=== PATIENT | female | born 1950 | race Caucasian/White ===

== ENCOUNTER → 2017-02-10 | Outpatient (CLI) | payer OTHER ==
[~2017-02-10] MED LIST: ASPIR 8181 MG PO; ASPIRIN CHEWABL81 MG PO; AUGMENTIN TAB875 MG PO; BRILINTA 90 MG90 MG PO; CALCIUM + D3 E1 EACH PO; CIPRO HC10 ML OT; LEVOTHYROXINE50 MCG PO; LIPITOR TAB 2020 MG PO; METOPROLOL SUCC25 MG PO; NITROSTAT0.4 MG SL; NORVASC 5 MG TAB5 MG PO; OMEPRAZOLE20 M1 PO; PROBIOTIC1 EAC1 PO; SUPER B COMPLE1 EAC1 PO; VITAMIN B12 PO
[2017-02-10 10:39] LABS: RED BLOOD COUNT 4.56 M/UL (4.00-5.10); WHITE BLOOD COUNT 5.9 K/UL (4.5-11.0)
[2017-02-10 10:58] LABS: BUN/CREATININE RATIO 20 (0-10)
== END ==
LOC: LAB 10:03
PROVIDERS: Dermatology
DX: L40.0 Psoriasis vulgaris (principal); L40.1 Generalized pustular psoriasis
CPT/HCPCS: 36415; 80053; 82248; 85027

== ENCOUNTER → 2017-06-24 | Outpatient (CLI) | payer OTHER ==
[2017-06-24 11:10] LABS: BUN/CREATININE RATIO 27 (0-10)
== END ==
LOC: LAB 08:38
PROVIDERS: Dermatology
DX: J43.9 Emphysema, unspecified (principal); L40.0 Psoriasis vulgaris; L40.1 Generalized pustular psoriasis
CPT/HCPCS: 36415; 71020; 80053; 80074; 82248; 87390

== ENCOUNTER → 2021-05-11 | Outpatient (CLI) | payer MEDICARE ==
[2021-05-11 16:01] LABS: HEMOGLOBIN 13.5 gm/dl (12.3-15.3); RED BLOOD COUNT 4.33 M/UL (4.00-5.10); WHITE BLOOD COUNT 5.3 K/UL (4.5-11.0)
[2021-05-14 19:12] LABS: QUANTIFERON MITOGEN VALUE >10.00 IU/mL (.); QUANTIFERON TB1 AG VALUE 0.08 IU/mL (.); QUANTIFERON-TB GOLD PLUS Negative (Negative)
== END ==
LOC: RAD 13:13
PROVIDERS: Dermatology
DX: L40.0 Psoriasis vulgaris (principal); L40.1 Generalized pustular psoriasis; J43.9 Emphysema, unspecified
CPT/HCPCS: 36415; 71046; 80053; 80076; 85027

== ENCOUNTER → 2021-08-12 | Outpatient (CLI) | payer MEDICARE | LOC: HEART 5 07:33 | DX: I25.10 Atherosclerotic heart disease of native coronary artery without angina pectoris (principal); I10 Essential (primary) hypertension; R00.1 Bradycardia, unspecified; I08.1 Rheumatic disorders of both mitral and tricuspid valves | CPT/HCPCS: 78452; 93306; A9502; J2785 ==

== ENCOUNTER → 2021-08-30 | Outpatient (CLI) | payer MEDICARE ==
[2021-08-30 13:22] LABS: HEMOGLOBIN 13.1 gm/dl (12.3-15.3); RED BLOOD COUNT 4.21 M/UL (4.00-5.10); WHITE BLOOD COUNT 6.7 K/UL (4.5-11.0)
[2021-08-30 13:56] LABS: BUN/CREATININE RATIO 18 (0-10)
== END ==
LOC: LAB 12:55
PROVIDERS: Internal Medicine Interventional Cardiology
DX: R00.1 Bradycardia, unspecified (principal); J30.9 Allergic rhinitis, unspecified; I25.10 Atherosclerotic heart disease of native coronary artery without angina pectoris; R07.9 Chest pain, unspecified; R53.83 Other fatigue; I10 Essential (primary) hypertension; G47.00 Insomnia, unspecified; G47.33 Obstructive sleep apnea (adult) (pediatric); R06.02 Shortness of breath; Z95.5 Presence of coronary angioplasty implant and graft
CPT/HCPCS: 36415; 80048; 85025; 85610; 85730; 93005

== ENCOUNTER 2021-09-07 06:42 | Outpatient (CLI) | payer MEDICARE ==
[~2021-09-07] VITALS: Ht 165.1 cm; Wt 73.5 kg
[2021-09-07] MEDS ORDERED: PRAVASTATIN SOD80 MG PO (07:51)
[2021-09-07] MEDS ORDERED: PROBIOTIC1 EAC1 PO (07:52)
[2021-09-07] MEDS ORDERED: MULTI-VITAMIN1 EACH PO (07:54)
[2021-09-07] MEDS ORDERED: MELOXICAM7.5 MG PO (07:59)
[2021-09-07] MEDS ORDERED: MONTELUKAST SOD10 MG PO (08:01)
[2021-09-07] MEDS ORDERED: COSENTYX P150 MG/11 SQ (08:01)
[2021-09-07] MEDS ORDERED: OMEGA-3 ACID ETH1 GM PO (08:02)
[2021-09-07] MEDS ORDERED: KENALOG 0.5% CR15 GM EXT (08:03)
[2021-09-07 19:20] LABS: HEMOGLOBIN 12.6 gm/dl (12.3-15.3); RED BLOOD COUNT 4.13 M/UL (4.00-5.10); WHITE BLOOD COUNT 8.6 K/UL (4.5-11.0)
[2021-09-07 19:49] LABS: BUN/CREATININE RATIO 17 (0-10)
[2021-09-08 04:08] LABS: HEMOGLOBIN 13.1 gm/dl (12.3-15.3); RED BLOOD COUNT 4.26 M/UL (4.00-5.10); WHITE BLOOD COUNT 7.5 K/UL (4.5-11.0)
[2021-09-08 04:55] LABS: BUN/CREATININE RATIO 18 (0-10)
[2021-09-08] MEDS ORDERED: ISOSORBIDE MONO30 MG PO (13:16)
[2021-09-08] MEDS ORDERED: BRILINTA90 MG PO (13:18)
== END 2021-09-08 14:17 | disposition home or self-care (01) ==
LOC: CATH 06:42 → PROG CARE 10:21 → CATH 09-08 14:17
PROVIDERS: Internal Medicine Interventional Cardiology
DX: I25.118 Atherosclerotic heart disease of native coronary artery with other forms of angina pectoris (principal); I10 Essential (primary) hypertension; I73.9 Peripheral vascular disease, unspecified; K21.9 Gastro-esophageal reflux disease without esophagitis; E78.00 Pure hypercholesterolemia, unspecified; Z23 Encounter for immunization; Z95.5 Presence of coronary angioplasty implant and graft; Z88.8 Allergy status to other drugs, medicaments and biological substances; Z79.82 Long term (current) use of aspirin; Z79.899 Other long term (current) drug therapy
CPT/HCPCS: 36415; 80048; 82550; 82553; 84484; 85027; 85347; 93005; 97161; 99152; 99153; C1725; C1769; C1874; C1887; C1894; C9600; J1170; J1644; J2250; J2405; J3010; J3246; J7030; Q9967

== ENCOUNTER → 2021-09-22 | Outpatient (CLI) | payer MEDICARE ==
[~2021-09-22] MED LIST changes: +BRILINTA90 MG PO; +COSENTYX P150 MG/11 SQ; +ISOSORBIDE MONO30 MG PO; +KENALOG 0.5% CR15 GM EXT; +MELOXICAM7.5 MG PO; +MONTELUKAST SOD10 MG PO; +MULTI-VITAMIN1 EACH PO; +OMEGA-3 ACID ETH1 GM PO; +PRAVASTATIN SOD80 MG PO
== END ==
LOC: HEART 5 09:50
DX: R07.9 Chest pain, unspecified (principal); R06.02 Shortness of breath

== ENCOUNTER 2021-12-10 17:31 | Inpatient (IN) | payer MEDICARE ==
[~2021-12-10] VITALS: Ht 165.1 cm; Wt 72.6 kg
[~2021-12-10 17:31] MED LIST changes: -MONTELUKAST SOD10 MG PO; -OMEGA-3 ACID ETH1 GM PO
[2021-12-10 18:40] LABS: HEMOGLOBIN 15.9 gm/dl (12.3-15.3); RED BLOOD COUNT 5.29 M/UL (4.00-5.10); WHITE BLOOD COUNT 11.1 K/UL (4.5-11.0)
[2021-12-10 18:57] LABS: BUN/CREATININE RATIO 18 (0-10)
[2021-12-10 19:06] LABS: ADENOVIRUS F 40/41 Not Detected (Negative); ASTROVIRUS Not Detected (Negative); CAMPYLOBACTER Not Detected (Negative); CRYPTOSPORIDIUM Not Detected (Negative); E.COLI 0157 Not Detected (Negative); ENTAMOEBA HISTOLYTICA Not Detected (Negative); ENTEROAGGREGATIVE E.COLI (EAEC Not Detected (Negative); ENTEROPATHOGENIC E.COLI (EPEC) Not Detected (Negative); ENTEROTOXIGENIC E.COLI (ETEC) Not Detected (Negative); GIARDIA LAMBLIA Not Detected (Negative); NOROVIRUS GI/GII Not Detected (Negative); PLESIOMONAS SHIGELLOIDES Not Detected (Negative); SALMONELLA Not Detected (Negative); SAPOVIRUS Not Detected (Negative); SHIG/ENTEROINVAS.ECOLI (EIEC) Not Detected (Negative); SHIGA-LIK TOX.PRO.E.COLI (STEC Not Detected (Negative); VIBRIO Not Detected (Negative); VIBRIO CHOLERAE Not Detected (Negative); YERSINIA ENTEROCOLITICA Not Detected (Negative)
[2021-12-11 04:22] LABS: RED BLOOD COUNT 4.23 M/UL (4.00-5.10); WHITE BLOOD COUNT 5.6 K/UL (4.5-11.0)
[2021-12-11] MEDS ORDERED: MONTELUKAST SOD10 MG PO (08:01)
[2021-12-11] MEDS ORDERED: FISH OIL 1,0001 EACH PO (08:02)
[2021-12-11 08:23] LABS: ROTOVIRUS A DETECTED (Negative)
[2021-12-11] MEDS ORDERED: RANEXA500 MG PO (10:17)
[2021-12-11] MEDS ORDERED: CALCIUM 500 +1 EAC3 PO (10:17)
[2021-12-11] MEDS ORDERED: CO Q-10100 MG PO (10:19)
[2021-12-11] MEDS ORDERED: ZINC50 M2 PO (10:19)
[2021-12-11] MEDS ORDERED: VITAMIN C500 M4 PO (10:20)
[2021-12-11] MEDS ORDERED: VITAMIN D325 MCG PO (10:20)
[2021-12-12 04:23] LABS: HEMOGLOBIN 11.9 gm/dl (12.3-15.3); RED BLOOD COUNT 3.88 M/UL (4.00-5.10)
[2021-12-12 04:25] LABS: WHITE BLOOD COUNT 4.1 K/UL (4.5-11.0)
[2021-12-12 04:53] LABS: BUN/CREATININE RATIO 20 (0-10)
[2021-12-12] MEDS ORDERED: ZOFRAN ODT 4 MG4 MG SL (10:18)
== END 2021-12-12 14:21 | disposition home or self-care (01) | DRG 683 ==
LOC: ER1 17:31 → MED SURG 4 21:07 → CDU 21:07 → MED SURG 4 23:36
PROVIDERS: Family Medicine; Internal Medicine; ADMIT Internal Medicine
DX: N17.9 Acute kidney failure, unspecified (principal); A08.0 Rotaviral enteritis; E87.1 Hypo-osmolality and hyponatremia; E87.2 Acidosis; N39.0 Urinary tract infection, site not specified; Z20.822 Contact with and (suspected) exposure to COVID-19; E86.0 Dehydration; E87.6 Hypokalemia; I25.10 Atherosclerotic heart disease of native coronary artery without angina pectoris; E86.1 Hypovolemia; I10 Essential (primary) hypertension; E78.5 Hyperlipidemia, unspecified; K21.9 Gastro-esophageal reflux disease without esophagitis; Z95.1 Presence of aortocoronary bypass graft; Z88.8 Allergy status to other drugs, medicaments and biological substances; Z90.49 Acquired absence of other specified parts of digestive tract; Z98.51 Tubal ligation status; Z82.49 Family history of ischemic heart disease and other diseases of the circulatory system; Z79.82 Long term (current) use of aspirin; Z79.899 Other long term (current) drug therapy
CPT/HCPCS: 36415; 80053; 81001; 82550; 82553; 83605; 83690; 83735; 84484; 85025; 85027; 85610; 87449; 87507; 93005; 96374; 99285; J0696; J2405; J3480; J7030; U0002

== ENCOUNTER → 2022-01-31 | Outpatient (CLI) | payer MEDICARE ==
[~2022-01-31] MED LIST changes: +CALCIUM 500 +1 EAC3 PO; +CO Q-10100 MG PO; +FISH OIL 1,0001 EACH PO; +MONTELUKAST SOD10 MG PO; +RANEXA500 MG PO; +VITAMIN C500 M4 PO; +VITAMIN D325 MCG PO; +ZINC50 M2 PO; +ZOFRAN ODT 4 MG4 MG SL
[2022-01-31 17:18] LABS: HEMOGLOBIN 13.3 gm/dl (12.3-15.3); RED BLOOD COUNT 4.24 M/UL (4.00-5.10)
[2022-01-31 17:54] LABS: BUN/CREATININE RATIO 19 (0-10)
[2022-02-03 16:13] LABS: QUANTIFERON MITOGEN VALUE >10.00 IU/mL (.); QUANTIFERON NIL VALUE 0.06 IU/mL (.); QUANTIFERON TB1 AG VALUE 0.05 IU/mL (.); QUANTIFERON TB2 AG VALUE 0.05 IU/mL (.); QUANTIFERON-TB GOLD PLUS Negative (Negative)
== END ==
LOC: RAD 15:06
PROVIDERS: Dermatology
DX: J43.9 Emphysema, unspecified (principal); L40.0 Psoriasis vulgaris; L40.1 Generalized pustular psoriasis
CPT/HCPCS: 36415; 71045; 80053; 85025; 85027